=== PATIENT | female | born 1985 | race Caucasian/White ===

== ENCOUNTER → 2017-11-16 08:04 | Outpatient (CLI) | payer BC, SELFPAY ==
--- NOTE | 2017-11-16 | DI.US.S_ITS ---
PROCEDURE: US OB FOLLOW UP INDICATIONS: MARGINAL PREVIA OUTSIDE/PRIOR DATING DATA: Last menstrual period (LMP): Unknown. LMP-based estimated date of delivery (LANCE): Not available. First dating scan (date and location): 04/27/17, [facility]. Estimated date of delivery (LANCE) from first dating scan: 12/27/17. TECHNIQUE: Real-time scanning was performed of the fetus, with image documentation and biometric measurements. Endovaginal scanning: Not performed COMPARISON: None. FINDINGS: General: A single living intrauterine gestation is present. Presentation: Vertex. Placenta: Placental position is fundal, without previa. Amniotic fluid index: 16.7 cm, normal range is 5-24 cm. heart rate: 121 beats per minute. Maternal cervical canal: Not visualized Other: Not applicable. IMPRESSION: Single live uterine gestation. No sonographic findings to suggest placenta previa or marginal previa. Dictated by: Alina Dixon M.D. on 11/16/2017 at 9:21 Approved by: Alina Dixon M.D. on 11/16/2017 at 9:23
== END ==
PROVIDERS: PCP Midwife; Visit Provider Midwife
DX: O44.20 Partial placenta previa NOS or without hemorrhage, unspecified trimester (principal)
CPT/HCPCS: 76816